=== PATIENT | male | born 1950 ===

== ENCOUNTER 2016-07-09 07:04 | Emergency (ER) | payer OTHER ==
[2016-07-09 07:24] VITALS: BP 151/89
--- NOTE | 2016-07-09 08:06 | UC ---
Lower Extremity/Ankle HPI - HPI Summary HPI Summary: INTERMITTENT PAIN IN RIGHT GREAT TOE FOR SEVERAL MONTHS THAT OVER THE PAST 1 MONTH HAS BECOME CONSTANT. HAS REDNESS AND SWELLING. WENT TO HIS PCP AND WAS TREATED WITH KEFLEX FOR POSSIBLE INFECTION WITH NO IMPROVEMENT. TREATED FOR GOUT WITH INDOMETHACIN ALSO WITHOUT IMPROVEMENT. HAD A NEGATIVE TOE XRAY. STATES HE HAS HAD GOUT AND THIS FEELS DIFFERENT. DENIES ANY TRAUMA OR PREVIOUS INJURY. - History of Current Complaint Chief Complaint: UCLowerExtremity Stated Complaint: FOOT/TOE PAIN Time Seen by Provider: 07/09/16 07:29 Hx Obtained From: Patient Onset/Duration: Gradual Onset, Lasting Weeks, Still Present Severity Initially: Mild Severity Currently: Mild Pain Intensity: 2 Pain Scale Used: 0-10 Numeric Aggravating Factor(s): Standing, Ambulation Alleviating Factor(s): Rest Able to Bear Weight: Yes - Allergies/Home Medications Allergies/Adverse Reactions: Allergies Allergy/AdvReac Type Severity Reaction Status Date / Time Penicillins Allergy Mild Rash Verified 07/09/16 07:24 Home Medications: Home Medications Aspirin [Aspirin 81 MG TAB] 81 mg PO 07/09/16 [History] Multiple Vitamin [Multi Vitamin] 1 tab PO 07/09/16 [History] [place]-3 Fatty Acids [Fish Oil 1200 mg] 1 cap PO 07/09/16 [History Confirmed 10/18] Spironolactone TAB* [Aldactone TAB 25 MG*] 25 mg PO DAILY 07/09/16 [History Confirmed 07/09/16] PMH/Surg Hx/FS Hx/Imm Hx - Additional Past Medical History Additional PMH: GOUT Cardiovascular History Of: Reports: Hypertension - Surgical History Surgical History: None - Family History Known Family History: Positive: Hypertension - Social History Alcohol Use: Occasionally Substance Use Type: None Smoking Status (MU): Never Smoked Tobacco - Immunization History Most Recent Tetanus Shot: 02/02/12 Review of Systems Constitutional: Negative Skin: Other - ERYTHEMA RIGHT GREAT TOE Respiratory: Negative Cardiovascular: Negative Gastrointestinal: Negative Musculoskeletal: Arthralgia, Decreased ROM, Edema All Other Systems Reviewed And Are Negative: Yes Physical Exam Triage Information Reviewed: Yes Appearance: Well-Appearing, No Pain Distress, Well-Nourished Vital Signs: Initial Vital Signs Temp 97.7 F 07/09/16 07:13 Pulse 57 07/09/16 07:13 Resp 14 07/09/16 07:13 BP 151/89 07/09/16 07:13 Pulse Ox 96 07/09/16 07:13 Vital Signs Reviewed: Yes Eyes: Positive: Conjunctiva Clear ENT: Positive: Hearing grossly normal Neck: Positive: Supple Respiratory: Positive: No respiratory distress, No accessory muscle use Cardiovascular: Positive: Pulses Normal Abdomen Description: Positive: Soft Musculoskeletal: Positive: ROM Limited @ - RIGHT GREAT TOE, Edema @ - RIGHT GREAT TOE, Other: - TTP RIGHT 1ST METATARSAL Neurological: Positive: Alert Psychological: Positive: Age Appropriate Behavior Skin: Positive: Other - ERYTHEMA RIGHT 1ST MCP JOINT Diagnostics - Radiology RIGHT GREAT TOE XRAY Xray Interpretation: Positive (See Comments) - MODERATE FIRST MTP JOINT OSTEOARTHRITIS Radiology Interpretation Completed By: Radiologist Lower Extremity Course/Dx - Differential Dx/Diagnosis Differential Diagnosis/HQI/PQRI: Cellulitis, Contusion, Gout, Sprain Provider Diagnoses: MODERATE RIGHT FIRST MTP JOINT OSTEOARTHRITIS Discharge - Discharge Plan Condition: Stable Disposition: HOME Prescriptions: Naproxen [Naproxen EC] 500 mg PO BID PRN #30 tab PRN Reason: Pain Patient Education Materials: Osteoarthritis (ED) Referrals: Joshua MCADAMS,Dewayne Marshall [Primary Care Provider] - 1 Week Additional Instructions: XRAY TODAY SHOWS MODERATE OSTEOARTHRITIS IN YOUR RIGHT GREAT TOE. THIS MAY BE CAUSING ALL YOUR SYMPTOMS. TAKE THE NAPROSYN TWICE DAILY. WATCH YOUR BP AND FOLLOW-UP WITH DR. OSORIO NEXT WEEK FOR RE-EVALUATION.
--- NOTE | 2016-07-09 08:10 | RAD ---
INDICATION: Right great toe pain COMPARISON: None TECHNIQUE: AP, lateral, and oblique views were obtained. FINDINGS: There is moderate first MTP joint osteoarthritis. There is narrowing, mild cirrhosis, and mild cystic change. There is mild soft tissue swelling. There is no acute bony changes. IMPRESSION: MODERATE FIRST MTP JOINT OSTEOARTHRITIS
== END 2016-07-09 08:44 | disposition home or self-care (01) ==
LOC: UCEAST 07:04
DX: M19.071 Primary osteoarthritis, right ankle and foot (principal); I10 Essential (primary) hypertension; Z88.0 Allergy status to penicillin; Z79.82 Long term (current) use of aspirin
CPT/HCPCS: 99202; G0463